=== PATIENT | female | born 1935 | race Caucasian/White ===

== ENCOUNTER 2016-08-29 11:08 | Inpatient (IN) | payer MEDICARE ==
--- NOTE | ~2016-08-29 | DS ---
Discharge Summary [facility] [address] [place]. [address] NAME: BROOKLYNN HOWE : 37 STATUS : DIS IN PAT#: [id number] AGE: 81 ADM/REG DATE : 08/29/16 MR#: [id number] REPORT SERV DATE: 09/05/16 DICTATED BY: SAMUEL SANCHES II DATE: 09/04/16 REPORT STATUS : Draft TRANSCRIBED BY: MODL DATE: 09/04/16 ADMISSION DATE: 08/29/2016 DISCHARGE DATE: 09/04/2016 DISCHARGE DIAGNOSES: 1. Clostridium difficile colitis. 2. Hematochezia secondary to above, resolved. 3. Acute kidney injury. 4. Leukocytosis. 5. Dementia and debility. 6. Electrolyte abnormalities. 7. Diabetes mellitus type 2. 8. History of Clostridium difficile last year. 9. History of hypothyroidism. 10.History of hyperlipidemia. 11.History of depression. 12.History of ventricular tachycardia. 13.Possible Parkinson. BRIEF HISTORY OF PRESENT ILLNESS: The patient is an 81-year-old female with the above history, who presented to [facility] due to diarrhea and leukocytosis, subsequently found to be positive for Clostridium difficile. For detailed history and physical examination, please see Dr. Pickard' note from 08/29/2016. HOSPITAL COURSE: On admission, the patient had a white count of 17, and CT of the abdomen and pelvis showed acute left-sided colitis from the splenic flexure to the rectum, potentially due to C difficile. Also extensive sigmoid colonic diverticulosis without definitive diverticulitis. Moderate aortoiliac atherosclerosis, coronary atherosclerosis, and moderate aortic valvular calcifications. She was subsequently positive for C difficile, stool antigen, and started on p.o. vancomycin. She did have initially a decrease in her leukocytosis, but on third day of admission, her white count sammy to 16 and she had worsening abdominal pain, so she was started on IV Flagyl. After that, her white count started trending down consistently and currently at 6.3. Now, she has been switched completely over to oral vancomycin and since it is her first recurrence, we will do a prolonged taper. Otherwise on admission, her creatinine was mildly elevated at 1.29 and this has been stable around 0.7 to 0.8. Her abdominal pain has improved. She did, however, have a few days of hematochezia, which has subsequently improved. Currently, her stools are more firm and brow. Her hemoglobin was 11.4 on admission and did trend down slightly to 9.3 today. Overall, she feels much better and is stable for discharge. DISCHARGE MEDICATIONS: 1. Aspirin 81 mg p.o. daily. 2. Ferrous sulfate 325 mg p.o. daily. 3. Prozac 40 mg p.o. daily. 4. Synthroid 50 mcg p.o. daily. 5. Lopressor 25 mg p.o. b.i.d. Discharge Summary [address] [address] NAME: BROOKLYNN HOWE : 37 STATUS : DIS IN PAT#: [id number] AGE: 81 ADM/REG DATE : 08/29/16 MR#: [id number] REPORT SERV DATE: 09/05/16 DICTATED BY: SAMUEL SANCHES II DATE: 09/04/16 REPORT STATUS : Draft TRANSCRIBED BY: JOYCEL DATE: 09/04/16 6. Primidone 50 mg p.o. b.i.d. 7. Seroquel 200 mg p.o. q.h.s. 8. Florastor one capsule daily. 9. Zocor 40 mg p.o. q.h.s. 10.Vancomycin 125 mg p.o. q.6 hours with a prolonged taper as written. 11.Metformin 500 mg p.o. daily. 12.Nifedipine 90 mg p.o. daily. 13.Lisinopril 20 mg p.o. daily. 14.Multivitamin daily. 15.Percocet 5/325 mg q.4 hours p.r.n. pain. DISCHARGE INSTRUCTIONS: The patient will follow up with her primary care physician, Dr. Juvenal Jones in one to two weeks. DICTATED BY: MD SANYA Domingo II/MADDIE Samuel Sanches II, MD / [id number] CC: MD Juvenal Domingo II, D.O.
--- NOTE | ~2016-08-29 | HP ---
History And Physical [address] [place]. [address] NAME: BROOKLYNN HOWE : 37 STATUS : ADM IN [facility]#: [id number] AGE: 81 ADM/REG DATE : 08/29/16 MR#: [id number] REPORT SERV DATE: 08/29/16 DICTATED BY: NILDA PICKARD DATE: 08/29/16 REPORT STATUS : Draft TRANSCRIBED BY: MADDIE DATE: 08/29/16 DATE OF ADMISSION: 08/29/2016 CHIEF COMPLAINT: Diarrhea. HISTORY OF PRESENT ILLNESS: The patient is a very pleasant 81-year-old white female. She is well known to the hospitalist service. She was last here in November with C. difficile colitis. The patient was in her usual state of health until this morning when she had an episode of profound watery profuse diarrhea and a syncopal spell. She actually fell onto the floor. Her son reports that there was stool every where. She is complaining of some low back pain. She did not have documented fever. She had some nausea and actually vomited also while she was on the floor. EMS was called and she was brought to the hospital. She is complaining of some mild abdominal pain and she has had several copious watery stools here in the emergency department. Her C. diff in November was treated with oral vancomycin. She improved and she has not had a recurrence since then until possibly today. She does not have a cough. She has not had again documented fever. She has not had any chest pain. PAST MEDICAL HISTORY: 1. Gout. 2. C. diff in the past in November 2015. 3. Diabetes mellitus. 4. Hypothyroidism. 5. Hyperlipidemia. 6. Depression. 7. Ventricular tachycardia. 8. Dementia. 9. Possible Parkinson's. 10.Depression. 11.Congestive heart failure, details unknown. PAST SURGICAL HISTORY: She has had 1. Incisional hernia repair. 2. Hysterectomy. FAMILY HISTORY: Positive for some type of cancer but she is not sure what type. SOCIAL HISTORY: She quit smoking about 13 years ago. She does not drink alcohol. She lives at home with her son and his . ALLERGIES: MORPHINE. HOME MEDICATIONS: Reviewed and attached. REVIEW OF SYSTEMS: Full 10-point review of systems obtained. Pertinent positives are already mentioned in the History And Physical [address] [place]. [address] NAME: BROOKLYNN HOWE : 37 STATUS : ADM IN [facility]#: [id number] AGE: 81 ADM/REG DATE : 08/29/16 MR#: [id number] REPORT SERV DATE: 08/29/16 DICTATED BY: NILDA PICKARD DATE: 08/29/16 REPORT STATUS : Draft TRANSCRIBED BY: MODL DATE: 08/29/16 HPI. PHYSICAL EXAMINATION: VITAL SIGNS: Blood pressure 118/90, sats are 95% on 2 L, temperature is 96.0, respiratory rate is 12, and pulse is 56 to 60. GENERAL: Elderly white female, obviously ill. HEENT: Normocephalic, atraumatic. Throat is clear. NECK: Supple. HEART: Regular rate and rhythm without murmurs, rubs, or gallops. LUNGS: Grossly clear. ABDOMEN: Soft, mildly tender in the lower quadrants. Positive bowel sounds are present. EXTREMITIES: Warm and dry. SKIN: Intact without rash or lesion. Pulses 2+ at the feet. NEUROLOGIC: She is alert. She is oriented to person and place. She has symmetrical strength and tone in all four extremities but she is weak in general. PSYCHIATRIC: Her mood and affect are appropriate. LAB AND X-RAY STUDIES: CT of the abdomen and pelvis shows left-sided colitis, diverticulosis, aortoiliac atherosclerosis, and coronary artery atherosclerosis. Urinalysis is essentially normal. Cryptosporidium and Giardia are negative. She has no significant whites. Followup C. diff is positive. BUN and creatinine are 25 and 1.29. Glucose is 142, sodium 136, potassium 4.6, chloride 107, and CO2 of 19. LFTs are remarkably normal with an albumin low at 2.7. Troponin is 0.02. CBC: White count 17, H and H 11 and 35, and platelets are 271. Coags are normal. ASSESSMENT/PLAN: 1. Recurrent Clostridium difficile colitis. We will place her on oral vancomycin in addition to IV Flagyl given her leukocytosis, her abdominal pain, and colitis on CT. We will provide clear liquids, IV fluids, and follow her clinical exam. 2. Acute kidney injury. Again, treat underlying Clostridium difficile and hydrate. 3. History of hypertension. Follow closely. Judicious use of blood pressure medications given ongoing acute kidney injury and diarrhea. 4. History of dementia. 5. History of hypothyroidism. Continue Synthroid. 6. History of hyperlipidemia. 7. Deep venous thrombosis prophylaxis with subcutaneous heparin. 8. Disposition pending above aforementioned plan and workup. 9. We will use her blood pressure medications judiciously given her ongoing C. diff and diarrhea. 10.PURA, wears O2 at bedtime at 3.5 L. DOMINIC/MADDIE Nilda Escobedo History And Physical [address] [address] NAME: BROOKLYNN HOWE : 37 STATUS : ADM IN [facility]#: [id number] AGE: 81 ADM/REG DATE : 08/29/16 MR#: [id number] REPORT SERV DATE: 08/29/16 DICTATED BY: NILDA PICKARD DATE: 08/29/16 REPORT STATUS : Draft TRANSCRIBED BY: MADDIE DATE: 08/29/16 Zakiya Pickard / [id number] CC: MD Juvenal Domingo II, D.O.
[~2016-08-29 11:08] MED LIST: ADALAT CC90 MG PO; ASAB PO; CLEOCIN300 MG PO; FERROUS SULF325 M1 PO; FLORASTOR250 MG PO; FORTAMET500 MG PO; GLUCPH PO; HALF81 PO; ICY HOT OINTMENT TOP; LEVOTHYROXIN25 MCG PO; LEVOTHYROXIN50 MCG PO; LIDODERM TOP; LOP25 PO; LORTAB 5 PO; METAMUCIL CAN7 OZ PO; MULTIVIT/MIN PO; NIFEDIAC CC60 MG PO; NXL9 PO; PCET PO; PRIM50B PO; PRIN10 PO; PROBIOTIC PO; PROZAC40 MG PO; SEROQUEL200 MG PO; TOPXL25 PO; VANCOCIN HCL125 MG PO; VITAMIN B-12 PO; ZOCOR40 PO
[2016-08-29 11:46] LABS: BASOPHILS 0.1 %; BASOPHILS ABSOLUTE 0.01 10/3/uL (0.0-0.16); EOSINOPHILS 0.9 %; EOSINOPHILS ABSOLUTE 0.16 10/3/uL (0.0-0.53); HEMOGLOBIN 11.4 g/dL (12.0-16.0); IMMATURE GRANULOCYTES 0.3 %; IMMATURE GRANULOCYTES ABSOLUTE 0.05 10/3/uL (0.0-0.11); LYMPHOCYTES 9.2 %; LYMPHOCYTES ABSOLUTE 1.57 10/3/uL (0.67-4.30); MEAN CORPUS HGB CONC 32.2 g/dL (32.0-36.0); MEAN CORPUSCULAR HEMOGLOB 27.1 pg (26.0-34.0); MEAN PLATELET VOLUME 9.9 fL (9.2-13.0); MONOCYTES 1.9 %; MONOCYTES ABSOLUTE 0.33 10/3/uL (0.21-1.20); NEUTROPHILS 87.6 %; NEUTROPHILS ABSOLUTE 14.93 10/3/uL (2.02-8.40); PLATELET COUNT 271 10/3/uL (150-400); RBC DISTRIBUTION WIDTH 14.7 % (12.0-16.0); RED CELL COUNT 4.21 10/6/uL (4.0-5.6)
[2016-08-29 11:47] LABS: ER CBC TAT 0 Hrs 08 Mins; HEMATOCRIT 35.4 % (36.0-48.0); MANUAL DIFF NO %; MEAN CORPUSCULAR VOLUME 84.1 fL (80-100); WHITE BLOOD CELLS 17.1 10/3/uL (4.5-10.5)
[2016-08-29 11:53] LABS: INTERNATIONAL NORMAL RATI 1.2 UNITS (-); PARTIAL THROMBO TIME 29.3 SEC (22.5-37.2); PROTIME (NOT ORD) 14.8 SEC (12.0-14.5)
[2016-08-29 12:01] LABS: A/G RATIO 0.6 (0.7-1.9); ALBUMIN 2.7 G/DL (3.5-5.0); ALKALINE PHOSPHATASE 82 U/L (45-117); BUN (BLOOD UREA NITROGEN) 25 MG/DL (6-23); CALCIUM, SERUM 8.8 MG/DL (8.5-10.4); CHLORIDE, SERUM 107 MMOL/L (96-112); CO2 (CARBON DIOXIDE) 19 MMOL/L (24-34); CREATININE 1.29 MG/DL (0.55-1.02); GFR AFRICAN AMERICAN 46 ML/MIN (>=60); GFR NON AFRICAN AMERICAN 39 ML/MIN (>=60); GLOBULIN 4.3 G/DL (2.5-4.1); GLUCOSE, SERUM 142 MG/DL (60-99); POTASSIUM, SERUM 4.6 MMOL/L (3.5-5.3); SGOT(AST) 21 U/L (5-40); SGPT(ALT) 12 U/L (5-65); SODIUM, SERUM 136 MMOL/L (135-148); TOTAL BILIRUBIN 0.3 MG/DL (0-1.2); TROPONIN I <0.02 NG/ML (<0.05)
[2016-08-29 12:40] LABS: ASCORBIC ACID (UR NOT ORDER) NEG (NEG); BILIRUBIN, URINE NEGATIVE (NEG); ER URINALYSIS TAT 0 Hrs 14 Mins; KETONE, URINE NEGATIVE (NEG); LEUKOCYTE ESTERASE(NOT OR NEG (NEG); NITRITE (URINE) NEG (NEG); WBC (NOT ORDERED) (RFLEX) 3 (0-5)
[2016-08-29] MEDS ORDERED: FORTAMET500 MG PO (13:25)
[2016-08-29] MEDS ORDERED: ADALAT CC90 MG PO (13:25)
[2016-08-29] MEDS ORDERED: PRIM50B PO (13:25)
[2016-08-29] MEDS ORDERED: PRIN20 PO (13:26)
[2016-08-29] MEDS ORDERED: LOP25 PO (13:26)
[2016-08-29] MEDS ORDERED: PROZAC40 MG PO (13:26)
[2016-08-29] MEDS ORDERED: LEVOTHYROXIN50 MCG PO (13:26)
[2016-08-29] MEDS ORDERED: ZOCOR40 PO (13:26)
[2016-08-29] MEDS ORDERED: SEROQUEL200 MG PO (13:26)
[2016-08-29] MEDS ORDERED: ASAB PO (13:27)
[2016-08-29] MEDS ORDERED: CENTRUM PO (13:27)
[2016-08-29] MEDS ORDERED: FERROUS SULF325 M1 PO (13:27)
[2016-08-29] MEDS ORDERED: PROBIOTIC PO (13:27)
[2016-08-30 06:16] LABS: BASOPHILS 0.1 %; BASOPHILS ABSOLUTE 0.01 10/3/uL (0.0-0.16); EOSINOPHILS 0.1 %; EOSINOPHILS ABSOLUTE 0.01 10/3/uL (0.0-0.53); HEMATOCRIT 33.9 % (36.0-48.0); HEMOGLOBIN 11.2 g/dL (12.0-16.0); IMMATURE GRANULOCYTES 0.4 %; IMMATURE GRANULOCYTES ABSOLUTE 0.05 10/3/uL (0.0-0.11); LYMPHOCYTES 12.7 %; LYMPHOCYTES ABSOLUTE 1.64 10/3/uL (0.67-4.30); MANUAL DIFF NO %; MEAN CORPUSCULAR HEMOGLOB 27.5 pg (26.0-34.0); MEAN CORPUSCULAR VOLUME 83.3 fL (80-100); MEAN PLATELET VOLUME 9.7 fL (9.2-13.0); MONOCYTES 6.1 %; MONOCYTES ABSOLUTE 0.78 10/3/uL (0.21-1.20); NEUTROPHILS 80.6 %; NEUTROPHILS ABSOLUTE 10.38 10/3/uL (2.02-8.40); PLATELET COUNT 253 10/3/uL (150-400); RBC DISTRIBUTION WIDTH 14.6 % (12.0-16.0); RED CELL COUNT 4.07 10/6/uL (4.0-5.6); WHITE BLOOD CELLS 12.9 10/3/uL (4.5-10.5)
[2016-08-30 06:26] LABS: CHLORIDE, SERUM 107 MMOL/L (96-112); CREATININE 0.99 MG/DL (0.55-1.02); GFR AFRICAN AMERICAN 62 ML/MIN (>=60); GFR NON AFRICAN AMERICAN 54 ML/MIN (>=60); GLUCOSE, SERUM 126 MG/DL (60-99); POTASSIUM, SERUM 4.1 MMOL/L (3.5-5.3); SODIUM, SERUM 137 MMOL/L (135-148)
[2016-08-30 06:28] LABS: BUN (BLOOD UREA NITROGEN) 20 MG/DL (6-23); CO2 (CARBON DIOXIDE) 24 MMOL/L (24-34)
[2016-08-31 06:16] LABS: BASOPHILS 0.1 %; BASOPHILS ABSOLUTE 0.01 10/3/uL (0.0-0.16); EOSINOPHILS 0.3 %; EOSINOPHILS ABSOLUTE 0.05 10/3/uL (0.0-0.53); HEMATOCRIT 31.2 % (36.0-48.0); HEMOGLOBIN 10.1 g/dL (12.0-16.0); IMMATURE GRANULOCYTES 0.2 %; IMMATURE GRANULOCYTES ABSOLUTE 0.04 10/3/uL (0.0-0.11); LYMPHOCYTES 11.8 %; LYMPHOCYTES ABSOLUTE 1.92 10/3/uL (0.67-4.30); MEAN CORPUS HGB CONC 32.4 g/dL (32.0-36.0); MEAN CORPUSCULAR HEMOGLOB 26.9 pg (26.0-34.0); MEAN CORPUSCULAR VOLUME 83.2 fL (80-100); MEAN PLATELET VOLUME 10.1 fL (9.2-13.0); MONOCYTES 5.4 %; MONOCYTES ABSOLUTE 0.88 10/3/uL (0.21-1.20); NEUTROPHILS 82.2 %; NEUTROPHILS ABSOLUTE 13.44 10/3/uL (2.02-8.40); PLATELET COUNT 252 10/3/uL (150-400); RBC DISTRIBUTION WIDTH 14.8 % (12.0-16.0); RED CELL COUNT 3.75 10/6/uL (4.0-5.6); WHITE BLOOD CELLS 16.3 10/3/uL (4.5-10.5)
[2016-08-31 06:17] LABS: MANUAL DIFF NO %
[2016-08-31 06:26] LABS: BUN (BLOOD UREA NITROGEN) 11 MG/DL (6-23); CALCIUM, SERUM 8.1 MG/DL (8.5-10.4); CHLORIDE, SERUM 106 MMOL/L (96-112); CO2 (CARBON DIOXIDE) 23 MMOL/L (24-34); CREATININE 0.81 MG/DL (0.55-1.02); GFR AFRICAN AMERICAN 80 ML/MIN (>=60); GFR NON AFRICAN AMERICAN 69 ML/MIN (>=60); GLUCOSE, SERUM 92 MG/DL (60-99); POTASSIUM, SERUM 3.6 MMOL/L (3.5-5.3); SODIUM, SERUM 135 MMOL/L (135-148)
[2016-09-01 06:03] LABS: BASOPHILS 0.1 %; BASOPHILS ABSOLUTE 0.01 10/3/uL (0.0-0.16); EOSINOPHILS 0.9 %; HEMATOCRIT 30.5 % (36.0-48.0); IMMATURE GRANULOCYTES 0.3 %; IMMATURE GRANULOCYTES ABSOLUTE 0.03 10/3/uL (0.0-0.11); LYMPHOCYTES 12.5 %; LYMPHOCYTES ABSOLUTE 1.46 10/3/uL (0.67-4.30); MEAN CORPUS HGB CONC 32.8 g/dL (32.0-36.0); MEAN CORPUSCULAR HEMOGLOB 27.5 pg (26.0-34.0); MEAN CORPUSCULAR VOLUME 83.8 fL (80-100); MEAN PLATELET VOLUME 10.3 fL (9.2-13.0); MONOCYTES 5.2 %; NEUTROPHILS ABSOLUTE 9.45 10/3/uL (2.02-8.40); PLATELET COUNT 245 10/3/uL (150-400); RED CELL COUNT 3.64 10/6/uL (4.0-5.6); WHITE BLOOD CELLS 11.7 10/3/uL (4.5-10.5)
[2016-09-01 06:11] LABS: MANUAL DIFF NO %
[2016-09-01 06:13] LABS: CALCIUM, SERUM 8.1 MG/DL (8.5-10.4); CHLORIDE, SERUM 109 MMOL/L (96-112); CO2 (CARBON DIOXIDE) 23 MMOL/L (24-34); CREATININE 0.72 MG/DL (0.55-1.02); GFR AFRICAN AMERICAN 92 ML/MIN (>=60); GFR NON AFRICAN AMERICAN 79 ML/MIN (>=60); GLUCOSE, SERUM 89 MG/DL (60-99); POTASSIUM, SERUM 3.6 MMOL/L (3.5-5.3); SODIUM, SERUM 138 MMOL/L (135-148)
[2016-09-01 06:15] LABS: BUN (BLOOD UREA NITROGEN) 6 MG/DL (6-23)
[2016-09-02 06:09] LABS: BASOPHILS 0.3 %; BASOPHILS ABSOLUTE 0.02 10/3/uL (0.0-0.16); EOSINOPHILS 2.8 %; EOSINOPHILS ABSOLUTE 0.21 10/3/uL (0.0-0.53); HEMATOCRIT 31.4 % (36.0-48.0); HEMOGLOBIN 10.1 g/dL (12.0-16.0); IMMATURE GRANULOCYTES 0.5 %; IMMATURE GRANULOCYTES ABSOLUTE 0.04 10/3/uL (0.0-0.11); LYMPHOCYTES 19.8 %; MEAN CORPUS HGB CONC 32.2 g/dL (32.0-36.0); MEAN CORPUSCULAR HEMOGLOB 27.1 pg (26.0-34.0); MEAN CORPUSCULAR VOLUME 84.2 fL (80-100); MEAN PLATELET VOLUME 10.1 fL (9.2-13.0); MONOCYTES 5.4 %; MONOCYTES ABSOLUTE 0.41 10/3/uL (0.21-1.20); NEUTROPHILS 71.2 %; NEUTROPHILS ABSOLUTE 5.38 10/3/uL (2.02-8.40); PLATELET COUNT 276 10/3/uL (150-400); RBC DISTRIBUTION WIDTH 15.3 % (12.0-16.0); RED CELL COUNT 3.73 10/6/uL (4.0-5.6); WHITE BLOOD CELLS 7.6 10/3/uL (4.5-10.5)
[2016-09-02 06:10] LABS: MANUAL DIFF NO %
[2016-09-02 06:19] LABS: BUN (BLOOD UREA NITROGEN) 4 MG/DL (6-23); CALCIUM, SERUM 7.8 MG/DL (8.5-10.4); CHLORIDE, SERUM 109 MMOL/L (96-112); CO2 (CARBON DIOXIDE) 23 MMOL/L (24-34); CREATININE 0.77 MG/DL (0.55-1.02); GFR AFRICAN AMERICAN 85 ML/MIN (>=60); GFR NON AFRICAN AMERICAN 73 ML/MIN (>=60); GLUCOSE, SERUM 84 MG/DL (60-99); POTASSIUM, SERUM 3.6 MMOL/L (3.5-5.3); SODIUM, SERUM 137 MMOL/L (135-148)
[2016-09-03 07:01] LABS: BASOPHILS 0.6 %; BASOPHILS ABSOLUTE 0.04 10/3/uL (0.0-0.16); EOSINOPHILS 2.9 %; EOSINOPHILS ABSOLUTE 0.18 10/3/uL (0.0-0.53); HEMATOCRIT 30.7 % (36.0-48.0); HEMOGLOBIN 9.8 g/dL (12.0-16.0); IMMATURE GRANULOCYTES 0.8 %; IMMATURE GRANULOCYTES ABSOLUTE 0.05 10/3/uL (0.0-0.11); LYMPHOCYTES 26.3 %; LYMPHOCYTES ABSOLUTE 1.66 10/3/uL (0.67-4.30); MEAN CORPUS HGB CONC 31.9 g/dL (32.0-36.0); MEAN CORPUSCULAR VOLUME 84.6 fL (80-100); MEAN PLATELET VOLUME 9.7 fL (9.2-13.0); MONOCYTES 10.6 %; MONOCYTES ABSOLUTE 0.67 10/3/uL (0.21-1.20); NEUTROPHILS 58.8 %; NEUTROPHILS ABSOLUTE 3.71 10/3/uL (2.02-8.40); PLATELET COUNT 298 10/3/uL (150-400); RBC DISTRIBUTION WIDTH 15.4 % (12.0-16.0); RED CELL COUNT 3.63 10/6/uL (4.0-5.6); WHITE BLOOD CELLS 6.3 10/3/uL (4.5-10.5)
[2016-09-03 07:08] LABS: MANUAL DIFF NO %
[2016-09-03 07:11] LABS: BUN (BLOOD UREA NITROGEN) 6 MG/DL (6-23); CHLORIDE, SERUM 112 MMOL/L (96-112); CO2 (CARBON DIOXIDE) 20 MMOL/L (24-34); CREATININE 0.85 MG/DL (0.55-1.02); GFR AFRICAN AMERICAN 75 ML/MIN (>=60); GFR NON AFRICAN AMERICAN 65 ML/MIN (>=60); GLUCOSE, SERUM 82 MG/DL (60-99); SODIUM, SERUM 138 MMOL/L (135-148)
[2016-09-04 03:37] LABS: BASOPHILS 0.3 %; BASOPHILS ABSOLUTE 0.02 10/3/uL (0.0-0.16); EOSINOPHILS 3.4 %; EOSINOPHILS ABSOLUTE 0.21 10/3/uL (0.0-0.53); HEMATOCRIT 28.4 % (36.0-48.0); HEMOGLOBIN 9.3 g/dL (12.0-16.0); IMMATURE GRANULOCYTES ABSOLUTE 0.06 10/3/uL (0.0-0.11); LYMPHOCYTES 32.8 %; LYMPHOCYTES ABSOLUTE 2.01 10/3/uL (0.67-4.30); MEAN CORPUS HGB CONC 32.7 g/dL (32.0-36.0); MEAN CORPUSCULAR VOLUME 82.3 fL (80-100); MEAN PLATELET VOLUME 9.5 fL (9.2-13.0); MONOCYTES 10.4 %; MONOCYTES ABSOLUTE 0.64 10/3/uL (0.21-1.20); NEUTROPHILS 52.1 %; NEUTROPHILS ABSOLUTE 3.19 10/3/uL (2.02-8.40); PLATELET COUNT 309 10/3/uL (150-400); RBC DISTRIBUTION WIDTH 15.3 % (12.0-16.0); RED CELL COUNT 3.45 10/6/uL (4.0-5.6); WHITE BLOOD CELLS 6.1 10/3/uL (4.5-10.5)
[2016-09-04 03:39] LABS: MANUAL DIFF NO %
[2016-09-04] MEDS ORDERED: FLORASTOR250 MG PO (15:20)
[2016-09-04] MEDS ORDERED: VANCOCIN HCL125 MG (15:23)
[2016-09-04] MEDS ORDERED: PCET PO (15:24)
[2016-09-06] MEDS ORDERED: ASAB PO (23:23)
[2016-09-06] MEDS ORDERED: PRIN20 PO (23:24)
[2016-09-06] MEDS ORDERED: LEVOTHYROXIN50 MCG PO (23:24)
[2016-09-06] MEDS ORDERED: FERROUS SULF325 M1 PO (23:24)
[2016-09-06] MEDS ORDERED: PROZAC40 MG PO (23:24)
[2016-09-06] MEDS ORDERED: GLUCOPHXR PO (23:25)
[2016-09-06] MEDS ORDERED: MULTIVITAMI1 PO (23:25)
[2016-09-06] MEDS ORDERED: ADALAT CC90 MG PO (23:25)
[2016-09-06] MEDS ORDERED: LOP25 PO (23:25)
[2016-09-06] MEDS ORDERED: PCET PO (23:26)
[2016-09-06] MEDS ORDERED: SEROQUEL200 MG PO (23:27)
[2016-09-06] MEDS ORDERED: FLORASTOR250 MG PO (23:27)
[2016-09-06] MEDS ORDERED: PRIM50B PO (23:27)
[2016-09-06] MEDS ORDERED: ZOCOR40 PO (23:28)
[2016-09-06] MEDS ORDERED: VANCOCIN HCL125 MG PO (23:37)
== END 2016-09-04 18:19 | disposition home or self-care (01) | DRG 372 ==
LOC: ER 11:08 → 7NO 16:01
PROVIDERS: Emergency Medicine; Internal Medicine
DX: A04.7 Enterocolitis due to Clostridium difficile (principal); N17.9 Acute kidney failure, unspecified; Z99.81 Dependence on supplemental oxygen; F03.90 Unspecified dementia, unspecified severity, without behavioral disturbance, psychotic disturbance, mood disturbance, and anxiety; I10 Essential (primary) hypertension; E03.9 Hypothyroidism, unspecified; E78.5 Hyperlipidemia, unspecified; G47.33 Obstructive sleep apnea (adult) (pediatric); E11.9 Type 2 diabetes mellitus without complications; F32.9 Major depressive disorder, single episode, unspecified; K57.30 Diverticulosis of large intestine without perforation or abscess without bleeding
CPT/HCPCS: 72100; 74176; 80048; 80053; 81001; 82272; 82962; 83735; 84484; 85025; 85610; 85730; 87040; 87045; 87046; 87046-59; 87328; 87329; 87493; 87493-59; 87899; 87899-59; 89055; 93005; 96360; 97116-GP; 97162-GP; 97165-GO; 99285; A9270-GY; G8978-CK-GP; G8979-CJ-GP; J0360; J1170; J2405

== ENCOUNTER 2016-09-06 23:51 | Inpatient (IN) | payer MEDICARE ==
--- NOTE | ~2016-09-06 | HP ---
History And Physical [address] [address] NAME: BROOKLYNN HOWE : 37 STATUS : ADM Frank PAT#: [id number] AGE: 81 ADM/REG DATE : 09/07/16 MR#: [id number] REPORT SERV DATE: 09/07/16 DICTATED BY: ROBERT ESQUIVEL DATE: 09/07/16 REPORT STATUS : Draft TRANSCRIBED BY: MODL DATE: 09/07/16 DATE OF ADMISSION: 09/07/2016 CHIEF COMPLAINT: An 81-year-old female recovering from C. difficile colitis, now presenting with transient facial droop, confusion, dysarthria. HISTORY OF PRESENTING ILLNESS: The patient's history was obtained through interview of the patient and son, coupled with review of [facility] medical records. The patient was hospitalized earlier in August 2016 with C. difficile colitis. She was stabilized and able to return home on September 01 where she lives with her son. She has been recovering fairly well over these last few days, but then at 8:30 on the evening leading up to admission, she had taken her night medications and suddenly began acting oddly. The patient developed dysarthria, confusion, a right facial droop, left arm numbness. These symptoms lasted about 10 or 15 minutes before they resolved completely. Otherwise, the patient really has no major complaints. No hemiparesis, no aphasia, no double vision. No gait disturbance. No further diarrhea now. No nausea or vomiting. No abdominal pain. She claims to have a good appetite for several days. No chest pain. No shortness of breath. No cough. No headache. REVIEW OF SYSTEMS: Otherwise, a 14-point review of systems was obtained and was negative. PAST MEDICAL HISTORY: 1. 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 2. C. difficile colitis, November 2015 and August 2016. 3. Hypertension. 4. Diabetes. 5. Hypothyroidism. 6. Depression. 7. Ventricular tachycardia. 8. Dementia. 9. Parkinson's disease. 10.Congestive heart failure. 11.Elevated cholesterol. 12.Gout. 13.Cellulitis. 14.Lupus. History And Physical [address] [address] NAME: BROOKLYNN HOWE : 37 STATUS : ADM Frank PAT#: [id number] AGE: 81 ADM/REG DATE : 09/07/16 MR#: [id number] REPORT SERV DATE: 09/07/16 DICTATED BY: ROBERT ESQUIVEL DATE: 09/07/16 REPORT STATUS : Draft TRANSCRIBED BY: MADDIE DATE: 09/07/16 PAST SURGICAL HISTORY: 1. Incisional hernia repair. 2. Hysterectomy. 3. Bilateral vein stripping. 4. Cervical spine surgery. 5. Cholecystectomy. ALLERGIES: MORPHINE. SOCIAL HISTORY: Quit smoking 13 years ago. No alcohol use. Lives with son. Has a total of two sons. She lives in [place], [place]. She became a in 1979. FAMILY HISTORY: Father with throat cancer. Brother with heart disease. CURRENT MEDICATIONS: Include aspirin 81 mg p.o. daily, iron 325 mg p.o. daily, Prozac 40 mg p.o. daily, levothyroxine 50 mcg p.o. daily, lisinopril 20 mg p.o. daily, metformin 500 mg p.o. daily, Lopressor 25 mg p.o. daily, multivitamin daily, nifedipine 90 mg p.o. daily, Percocet, primidone 50 mg p.o. daily, Seroquel 200 mg p.o. daily, Florastor 250 mg daily, Zocor 40 mg p.o. daily, and Vancocin 125 mg p.o. q.6 hours. PHYSICAL EXAMINATION: VITAL SIGNS: Temperature 97.0, pulse 69, blood pressure 146/67, respiratory rate 20, and O2 saturation 97% on room air. GENERAL: Pleasant, cooperative, female, no evidence of acute distress. NEUROLOGICAL: Cranial nerves 2 through 12 are intact and symmetrical. The patient has just global weakness really with 4/5 strength in upper and lower extremities, but it is symmetrical. HEENT: Pupils equal, round, and reactive to light. No conjunctival pallor. No scleral icterus. Nares are patent. Oropharynx is clear of obstruction. Mildly dry mucous membranes. NECK: Trachea midline. No thyromegaly. LYMPH: No cervical lymphadenopathy. No supraclavicular lymphadenopathy. RESPIRATORY: Clear to auscultation at bases. No wheezes, rales, or rhonchi. Normal respiratory effort. CARDIOVASCULAR: Regular rate and rhythm. No murmurs, rubs, or gallops. No extremity edema is appreciated. ABDOMEN: Soft, nontender, nondistended. Normal bowel sounds auscultated throughout. No hepatosplenomegaly. DERMATOLOGIC: Warm and dry. EXTREMITIES: No pallor. No cyanosis. PSYCHIATRIC: Normal affect. Good mood. Alert and oriented x3. LABORATORY DATA: White blood cell count 7.0, hemoglobin 9.7, hematocrit 29.5, platelets 362. Sodium 137, potassium 4.2, chloride 105, bicarb 25, BUN 17, creatinine 0.8, glucose 99, INR 1.1. Troponin negative. Urinalysis shows positive leukocyte esterase and 34 white blood cells. History And Physical [address] [place]. [address] NAME: BROOKLYNN HOWE : 37 STATUS : ADM Frank PAT#: [id number] AGE: 81 ADM/REG DATE : 09/07/16 MR#: [id number] REPORT SERV DATE: 09/07/16 DICTATED BY: ROBERT ESQUIVEL DATE: 09/07/16 REPORT STATUS : Draft TRANSCRIBED BY: MADDIE DATE: 09/07/16 STUDIES: 1. EKG by my own evaluation shows sinus rhythm. 2. CT scan of the brain shows old right frontal stroke, but no new changes. ASSESSMENT AND PLAN: 1. Transient ischemic attack with negative CT scan of the brain for acute disease. Check carotid ultrasound. Check echocardiogram. Check fasting lipid panel. Check telemetry. Placed on aspirin. 2. Recovering C. difficile colitis. Start Vancocin. 3. Urinary tract infection. Check urine culture. Placed on p.o. Bactrim double strength. 4. Dementia. KPL/MODL Robert Esquivel M.D. / [id number] CC: Zakiya Everett D.O.
--- NOTE | ~2016-09-06 | DS ---
Discharge Summary [facility] [address] [place]. [address] NAME: BROOKLYNN HOWE : 37 STATUS : DIS IN PAT#: [id number] AGE: 81 ADM/REG DATE : 09/07/16 MR#: [id number] REPORT SERV DATE: 09/14/16 DICTATED BY: ELIESER JAY DATE: 09/12/16 REPORT STATUS : Draft TRANSCRIBED BY: MODL DATE: 09/12/16 ADMISSION DATE: 09/07/2016 DISCHARGE DATE: 09/12/2016 CONSULTATIONS: None. PERTINENT TESTS AND PROCEDURES: 1. CT of brain without contrast, 09/06/2016. Impression:. a. Mild diffuse cerebral involutional changes and deep white matter chronic microvascular ischemic change. b. Mild asymmetric localized chronic deep white matter microvascular ischemic changes located in the subcortical deep white matter, right frontal lobe versus an indeterminate age deep white matter CVA. c. Otherwise no acute intracranial pathology identified. 2. Carotid ultrasound, 09/07/2016. Impression:. a. Heterogeneous partially calcified atherosclerotic plaque of the proximal right internal carotid artery. Moderate stenosis estimated between 50% and 70%. Category 2. b. Heterogeneous partially calcified atherosclerotic plaque of the left internal carotid artery. Stenosis estimated at less than 50%. Category 1. 3. Chest x-ray, 09/07/2016. Impression: Blunting of the costophrenic angles best appreciated on lateral projection consistent with chronic pleural thickening versus small effusions. 4. Echocardiogram, 09/07/2016. Summary:. a. Technically difficult study due to poor acoustic windows. b. Normal left ventricular systolic function, with ejection fraction of 60%. c. Dilated left atrium. d. Mild diastolic dysfunction. e. Normal right ventricular chamber size and systolic function. f. Mild aortic stenosis and mild aortic regurgitation. g. Mild tricuspid regurgitation. h. No evidence of atrial septal defect or patent foramen ovale. 5. X-ray of the left hand and wrist, 09/12/2016. Impression: No evidence of acute traumatic injury to the left wrist or hand. 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 6. Urinalysis, specimen collected, 09/06/2016. Small leukocyte laura, negative nitrite, less than 1 red blood cell, 34 white blood cells, occasional white blood cell clumps, less than 1 epithelial-squamous cells, rare bacteria. 7. Urine culture, final result greater than 100,000 colonies per mL of urine, E coli pansensitive. HOSPITAL COURSE: Please refer to history and physical dated 09/07/[address] Alden Mccain for complete details pertaining to the patient's history and physical and initial presentation upon admission. Also refer to interim discharge summary dated 09/12/[address] Vimal Mcmanus Discharge Summary [address] [address] NAME: BROOKLYNN HOWE : 37 STATUS : DIS IN PAT#: [id number] AGE: 81 ADM/REG DATE : 09/07/16 MR#: [id number] REPORT SERV DATE: 09/14/16 DICTATED BY: ELIESER JAY DATE: 09/12/16 REPORT STATUS : Draft TRANSCRIBED BY: MADDIE DATE: 09/12/16 covering dates of service between 09/07/2016 and 09/11/2016. Briefly, the patient is an 81- year-old female with a past medical history significant for previous right frontal stroke by CT scan, C difficile colitis in November 2015 and August 2015, gout, and left hand cellulitis. The patient presented to the emergency department on 09/07/2016, presenting with transient facial droop, confusion, and dysarthria. Initial diagnostic evaluation included CT of the brain which showed old right frontal stroke, but no new changes. The patient was admitted for further evaluation and treatment for probable transient ischemic attack with negative CT of the brain for acute disease. This patient was initially admitted to the Clinical Decision Unit, where she was observed. The patient's symptoms to include facial droop, slurring of words, and confusion resolved during observation. Carotid ultrasound showed 50% to 70% stenosis of right carotid and less than 50% stenosis of left carotid. Echocardiogram showed intact ejection fraction with no evidence of valvular disease or source of emboli. The provider discussed plan of care with the patient's son with whom she lives and it was decided the patient would benefit from rehab. The patient was medically ready to be discharged on day 2 after her admission. Discharge was delayed pending approval to rehab facility. 1. TIA. The patient has history of previous right frontal stroke. CT scan of brain during this admission showed no acute changes. All symptoms present upon admission have resolved with no additional signs and symptoms of recurring events. Continue aspirin. 2. Clostridium difficile. The patient tested positive for C. diff on 08/29/2016. The patient is on day #15 p.o. vancomycin. The patient will be tapered to 125 mg every 8 hours x7 days starting today and then continue taper per protocol. 3. Left thumb/palmar surface pain and swelling, acute. The patient has no recent history of trauma. X-ray of left hand and wrist negative. The patient has a history of left hand cellulitis that resolved with antibiotics treated in February 2015. The patient also has a history of gout. CBC obtained prior to discharge reported white blood cell count to be 8.6. The patient had one episode of fever last p.m., max temperature 100.2 degrees. Uric acid was reported to be normal at 4.3. Left hand was positive for mild dorsal and palmar swelling without erythema or lesions. Very tender to palpation with limited range of motion to the left wrist secondary to pain. The patient was treated for presumed gout flare up. Prior to discharge today the patient received colchicine 1.2 mg tablet p.o. and then 0.6 mg p.o. x1 dose one hour later. 4. Chronic dementia. The patient's behavior is baseline at the time of discharge. 5. Abnormal urinalysis obtained upon admission. Urine culture positive for greater than 100,000 colonies of E. coli. The patient initially was placed on Bactrim; however, this medication was discontinued secondary to active treatment for C. diff. The patient is asymptomatic with no complaints of dysuria or hematuria. DISCHARGE CONDITION: At the time of discharge, the patient is hemodynamically stable. DISCHARGE DIET: Regular diet. Discharge Summary [address] [address] NAME: BROOKLYNN HOWE : 37 STATUS : DIS IN PAT#: [id number] AGE: 81 ADM/REG DATE : 09/07/16 MR#: [id number] REPORT SERV DATE: 09/14/16 DICTATED BY: ELIESER JAY DATE: 09/12/16 REPORT STATUS : Draft TRANSCRIBED BY: MADDIE DATE: 09/12/16 DISCHARGE MEDICATIONS: 1. Aspirin 81 mg p.o. daily. 2. Ferrous sulfate 325 mg tablet p.o. daily. 3. Prozac 40 mg tablet p.o. daily. 4. Levothyroxine 50 mcg p.o. daily. 5. Prinivil 20 mg tablet p.o. daily. 6. Multivitamin one tablet p.o. daily. 7. Lopressor 25 mg tablet p.o. twice daily. 8. Procardia XL 90 mg tablet p.o. daily. 9. Mysoline 50 mg tablet p.o. twice daily. 10.Seroquel 200 mg tablet p.o. daily at bedtime. 11.Florastor 250 mg tablet p.o. daily. 12.Zocor 40 mg tablet p.o. daily at bedtime. 13.Vancocin 125 mg p.o. every 8 hours x7 days starting today then taper per instructions. 14.Metformin 500 mg tablet p.o. daily. 15.Ativan 0.5 mg tablet p.o. every 6 hours as needed for anxiety, hold for sedation. DISCHARGE INSTRUCTIONS: The patient will be transferred to [facility] for continued rehabilitation and then transition home to reside with son. DICTATED BY: KAROLINA Ashby DICTATED FOR: MD SANTOS Cleaning/MADDIE KAROLINA Ashby Elieser Jay MD / [id number] CC: MD Juvenal Cleaning D.O.
--- NOTE | ~2016-09-06 | IDS ---
Interim Discharge Summary [facility] [address] [place]. [address] NAME: BROOKLYNN HOWE : 37 STATUS : ADM Frank PAT#: [id number] AGE: 81 ADM/REG DATE : 09/07/16 MR#: [id number] REPORT SERV DATE: 09/12/16 DICTATED BY: VIMAL MCMANUS DATE: 09/11/16 REPORT STATUS : Draft TRANSCRIBED BY: MADDIE DATE: 09/11/16 ADMISSION DATE: 09/07/2016 DISCHARGE DATE: INTERIM DIAGNOSES: 1. TIA. 2. 50% to 70% stenosis of the right carotid, less than 50% stenosis of the left carotid. 3. Generalized debility. 4. Clostridium difficile colitis on recent admission with ongoing treatment of oral vancomycin. 5. Dementia, currently stable. 6. Hypertension. 7. Essential tremor. 8. No evidence of urinary tract infection. Only positive urine culture in light of Clostridium difficile. We are not planning to treat this. CONSULTANTS DURING THIS HOSPITALIZATION: None. INVASIVE PROCEDURES DONE DURING THIS HOSPITALIZATION: None. BRIEF HISTORY OF PRESENT ILLNESS: The patient is an 81-year-old female, presented with some slurring of her words maybe more confusion so she was admitted. For detailed history and physical exam, please see note dictated by Dr. Alden Mccain on 09/07/2016. HOSPITAL COURSE: After being admitted to the hospital, this patient was kept in the clinical decision unit where she was observed. CT of the brain was negative. Her symptoms had resolved. So a carotid ultrasound was done which showed 50% to 70% stenosis of the right carotid, and less than 50% stenosis of the left carotid. Two-dimensional echocardiogram was done, which showed an intact ejection fraction without any evidence of valvular disease or source of emboli. There was no PFO noted as well. At this time, I discussed her care with the son whom she lives with and it was decided that she would benefit from rehab as which was recommended on her previous admission. We submitted this to rehab facility of patient's choice and apparently the rehab facility did not submit this to insurance for approval. We found that out this morning and now we are awaiting insurance approval for the last five days that has been the case for this patient. She was medically ready to be discharged on day #2 after her admission. DISPOSITION: Pending above. VEGA/MODL Vimal Mcmanus M.D. Interim Discharge Summary [facility] [id number] [address] NAME: BROOKLYNN HOWE : 37 STATUS : ADM Frank PAT#: [id number] AGE: 81 ADM/REG DATE : 09/07/16 MR#: [id number] REPORT SERV DATE: 09/12/16 DICTATED BY: VIMAL MCMANUS DATE: 09/11/16 REPORT STATUS : Draft TRANSCRIBED BY: MADDIE DATE: 09/11/16 / [id number] CC: Zakiya Everett D.O.
[2016-09-06 22:49] LABS: BASOPHILS 0.3 %; BASOPHILS ABSOLUTE 0.02 10/3/uL (0.0-0.16); EOSINOPHILS 2.3 %; EOSINOPHILS ABSOLUTE 0.16 10/3/uL (0.0-0.53); ER CBC TAT 0 Hrs 03 Mins; HEMATOCRIT 29.5 % (36.0-48.0); HEMOGLOBIN 9.7 g/dL (12.0-16.0); IMMATURE GRANULOCYTES ABSOLUTE 0.07 10/3/uL (0.0-0.11); LYMPHOCYTES 26.7 %; LYMPHOCYTES ABSOLUTE 1.88 10/3/uL (0.67-4.30); MEAN CORPUS HGB CONC 32.9 g/dL (32.0-36.0); MEAN CORPUSCULAR HEMOGLOB 27.2 pg (26.0-34.0); MEAN CORPUSCULAR VOLUME 82.9 fL (80-100); MEAN PLATELET VOLUME 9.3 fL (9.2-13.0); MONOCYTES 8.7 %; MONOCYTES ABSOLUTE 0.61 10/3/uL (0.21-1.20); PLATELET COUNT 362 10/3/uL (150-400); RBC DISTRIBUTION WIDTH 15.5 % (12.0-16.0); RED CELL COUNT 3.56 10/6/uL (4.0-5.6)
[2016-09-06 22:50] LABS: MANUAL DIFF NO %
[2016-09-06 22:57] LABS: INTERNATIONAL NORMAL RATI 1.1 UNITS (-); PARTIAL THROMBO TIME 30.3 SEC (22.5-37.2)
[2016-09-06 23:07] LABS: BUN (BLOOD UREA NITROGEN) 17 MG/DL (6-23); CALCIUM, SERUM 8.8 MG/DL (8.5-10.4); CHEST PAIN PROFILE TAT 0 Hrs 21 Mins; CHLORIDE, SERUM 105 MMOL/L (96-112); CO2 (CARBON DIOXIDE) 25 MMOL/L (24-34); CREATININE 0.79 MG/DL (0.55-1.02); GFR AFRICAN AMERICAN 82 ML/MIN (>=60); GFR NON AFRICAN AMERICAN 71 ML/MIN (>=60); GLUCOSE, SERUM 99 MG/DL (60-99); POTASSIUM, SERUM 4.2 MMOL/L (3.5-5.3); SODIUM, SERUM 137 MMOL/L (135-148); TROPONIN I <0.02 NG/ML (<0.05)
[~2016-09-06 23:51] MED LIST changes: +CENTRUM PO; +GLUCOPHXR PO; +MULTIVITAMI1 PO; +PRIN20 PO; +VANCOCIN HCL125 MG
[2016-09-07 00:23] LABS: ASCORBIC ACID (UR NOT ORDER) NEG (NEG); BILIRUBIN, URINE NEGATIVE (NEG); ER URINALYSIS TAT 0 Hrs 00 Mins; KETONE, URINE NEGATIVE (NEG); LEUKOCYTE ESTERASE(NOT OR SMALL (NEG); NITRITE (URINE) NEG (NEG); WBC (NOT ORDERED) (RFLEX) 34 (0-5)
[2016-09-07 10:33] LABS: BASOPHILS 0.1 %; BASOPHILS ABSOLUTE 0.01 10/3/uL (0.0-0.16); EOSINOPHILS 1.6 %; EOSINOPHILS ABSOLUTE 0.13 10/3/uL (0.0-0.53); HEMATOCRIT 29.8 % (36.0-48.0); HEMOGLOBIN 9.7 g/dL (12.0-16.0); IMMATURE GRANULOCYTES 0.8 %; IMMATURE GRANULOCYTES ABSOLUTE 0.06 10/3/uL (0.0-0.11); LYMPHOCYTES 24.5 %; LYMPHOCYTES ABSOLUTE 1.94 10/3/uL (0.67-4.30); MEAN CORPUS HGB CONC 32.6 g/dL (32.0-36.0); MEAN PLATELET VOLUME 9.1 fL (9.2-13.0); MONOCYTES 5.3 %; MONOCYTES ABSOLUTE 0.42 10/3/uL (0.21-1.20); NEUTROPHILS 67.7 %; NEUTROPHILS ABSOLUTE 5.35 10/3/uL (2.02-8.40); PLATELET COUNT 381 10/3/uL (150-400); RBC DISTRIBUTION WIDTH 15.5 % (12.0-16.0); RED CELL COUNT 3.59 10/6/uL (4.0-5.6); WHITE BLOOD CELLS 7.9 10/3/uL (4.5-10.5)
[2016-09-07 10:34] LABS: MANUAL DIFF NO %
[2016-09-07 10:40] LABS: INTERNATIONAL NORMAL RATI 1.1 UNITS (-); PARTIAL THROMBO TIME 30.9 SEC (22.5-37.2); PROTIME (NOT ORD) 14.4 SEC (12.0-14.5)
[2016-09-07 10:57] LABS: A/G RATIO 0.6 (0.7-1.9); ALBUMIN 2.7 G/DL (3.5-5.0); ALKALINE PHOSPHATASE 61 U/L (45-117); CALCIUM, SERUM 8.7 MG/DL (8.5-10.4); CHLORIDE, SERUM 106 MMOL/L (96-112); CHOLESTEROL 117 MG/DL (< 200); CO2 (CARBON DIOXIDE) 25 MMOL/L (24-34); CPK (IF ELEVATED MB BANDS) 43 U/L (0-200); GFR AFRICAN AMERICAN 95 ML/MIN (>=60); GFR NON AFRICAN AMERICAN 82 ML/MIN (>=60); GLOBULIN 4.4 G/DL (2.5-4.1); GLUCOSE, SERUM 88 MG/DL (60-99); HDL CHOLESTEROL 60 MG/DL (> 49); LDL CHOLESTEROL 41 MG/DL (< 130); NON-HDL CHOLESTEROL 57 MG/DL (< 160); POTASSIUM, SERUM 4.1 MMOL/L (3.5-5.3); SGOT(AST) 24 U/L (5-40); SGPT(ALT) 14 U/L (5-65); SODIUM, SERUM 139 MMOL/L (135-148); TOTAL BILIRUBIN 0.7 MG/DL (0-1.2); TOTAL PROTEIN 7.1 G/DL (6.0-8.5); TRIGLYCERIDE 82 MG/DL (< 150); TROPONIN I <0.02 NG/ML (<0.05)
[2016-09-07 10:59] LABS: BUN (BLOOD UREA NITROGEN) 11 MG/DL (6-23)
[2016-09-08 04:02] LABS: BASOPHILS 0.2 %; BASOPHILS ABSOLUTE 0.01 10/3/uL (0.0-0.16); EOSINOPHILS 1.9 %; EOSINOPHILS ABSOLUTE 0.11 10/3/uL (0.0-0.53); HEMATOCRIT 28.4 % (36.0-48.0); HEMOGLOBIN 9.4 g/dL (12.0-16.0); IMMATURE GRANULOCYTES 0.7 %; IMMATURE GRANULOCYTES ABSOLUTE 0.04 10/3/uL (0.0-0.11); LYMPHOCYTES 28.5 %; LYMPHOCYTES ABSOLUTE 1.63 10/3/uL (0.67-4.30); MEAN CORPUS HGB CONC 33.1 g/dL (32.0-36.0); MEAN CORPUSCULAR HEMOGLOB 27.6 pg (26.0-34.0); MEAN CORPUSCULAR VOLUME 83.5 fL (80-100); MEAN PLATELET VOLUME 9.4 fL (9.2-13.0); MONOCYTES 7.7 %; MONOCYTES ABSOLUTE 0.44 10/3/uL (0.21-1.20); NEUTROPHILS ABSOLUTE 3.48 10/3/uL (2.02-8.40); PLATELET COUNT 372 10/3/uL (150-400); RBC DISTRIBUTION WIDTH 15.4 % (12.0-16.0); WHITE BLOOD CELLS 5.7 10/3/uL (4.5-10.5)
[2016-09-08 04:09] LABS: MANUAL DIFF NO %
[2016-09-08 04:14] LABS: BUN (BLOOD UREA NITROGEN) 11 MG/DL (6-23); CALCIUM, SERUM 8.6 MG/DL (8.5-10.4); CHLORIDE, SERUM 106 MMOL/L (96-112); CO2 (CARBON DIOXIDE) 26 MMOL/L (24-34); CREATININE 0.95 MG/DL (0.55-1.02); GFR AFRICAN AMERICAN 66 ML/MIN (>=60); GFR NON AFRICAN AMERICAN 57 ML/MIN (>=60); GLUCOSE, SERUM 81 MG/DL (60-99); POTASSIUM, SERUM 4.2 MMOL/L (3.5-5.3); SODIUM, SERUM 137 MMOL/L (135-148)
[2016-09-12 12:10] LABS: BASOPHILS 0.1 %; BASOPHILS ABSOLUTE 0.01 10/3/uL (0.0-0.16); EOSINOPHILS 0.1 %; EOSINOPHILS ABSOLUTE 0.01 10/3/uL (0.0-0.53); HEMATOCRIT 30.8 % (36.0-48.0); HEMOGLOBIN 10.2 g/dL (12.0-16.0); IMMATURE GRANULOCYTES 0.2 %; IMMATURE GRANULOCYTES ABSOLUTE 0.02 10/3/uL (0.0-0.11); LYMPHOCYTES 18.1 %; LYMPHOCYTES ABSOLUTE 1.55 10/3/uL (0.67-4.30); MEAN CORPUS HGB CONC 33.1 g/dL (32.0-36.0); MEAN CORPUSCULAR HEMOGLOB 27.8 pg (26.0-34.0); MEAN CORPUSCULAR VOLUME 83.9 fL (80-100); MEAN PLATELET VOLUME 9.9 fL (9.2-13.0); MONOCYTES 4.6 %; MONOCYTES ABSOLUTE 0.39 10/3/uL (0.21-1.20); NEUTROPHILS 76.9 %; NEUTROPHILS ABSOLUTE 6.59 10/3/uL (2.02-8.40); PLATELET COUNT 363 10/3/uL (150-400); RBC DISTRIBUTION WIDTH 14.8 % (12.0-16.0); RED CELL COUNT 3.67 10/6/uL (4.0-5.6)
[2016-09-12 12:12] LABS: MANUAL DIFF NO %; WHITE BLOOD CELLS 8.6 10/3/uL (4.5-10.5)
== END 2016-09-12 16:22 | DRG 69 ==
LOC: ER 23:51 → CDU1 09-07 01:28 → 4EA 09-09 14:15
PROVIDERS: Emergency Medicine; Internal Medicine; Nurse Practitioner Family
DX: G45.9 Transient cerebral ischemic attack, unspecified (principal); A04.7 Enterocolitis due to Clostridium difficile; I11.0 Hypertensive heart disease with heart failure; N39.0 Urinary tract infection, site not specified; G20 Parkinson's disease; M32.9 Systemic lupus erythematosus, unspecified; E11.9 Type 2 diabetes mellitus without complications; B96.20 Unspecified Escherichia coli [E. coli] as the cause of diseases classified elsewhere; Z87.891 Personal history of nicotine dependence; Z79.82 Long term (current) use of aspirin; Z79.84 Long term (current) use of oral hypoglycemic drugs; Z79.891 Long term (current) use of opiate analgesic; E03.9 Hypothyroidism, unspecified; F02.80 Dementia in other diseases classified elsewhere, unspecified severity, without behavioral disturbance, psychotic disturbance, mood disturbance, and anxiety; E78.00 Pure hypercholesterolemia, unspecified; Z88.5 Allergy status to narcotic agent; I65.23 Occlusion and stenosis of bilateral carotid arteries; G25.0 Essential tremor; R53.81 Other malaise; R47.81 Slurred speech; R41.0 Disorientation, unspecified; R29.810 Facial weakness; Z86.73 Personal history of transient ischemic attack (TIA), and cerebral infarction without residual deficits; M19.042 Primary osteoarthritis, left hand; M1A.0320 Idiopathic chronic gout, left wrist, without tophus (tophi)
CPT/HCPCS: 70450; 71020; 73110-LT; 73130-LT; 80048; 80053; 80061; 81001; 82550; 82962; 83036; 83735; 84443; 84484; 84550; 85025; 85610; 85730; 87077; 87086; 87186; 93005; 93880; 97110-GO; 97110-GP; 97116-GP; 97162-GP; 97166-GO; 97535-GO; 99285; A9270-GY; C8929; J0360; Q9957